=== PATIENT | female | born 1955 | race African-American/Black ===

== ENCOUNTER 2016-05-14 09:41 | Outpatient (CLI) | payer OTHER ==
--- NOTE | 2016-05-15 12:52 | Mammography Report ---
BILATERAL DIGITAL SCREENING MAMMOGRAM with CAD: 05/14/16 09:41:00 CLINICAL: Routine screening. COMPARISON: None available. FINDINGS: There are bilateral scattered areas of fibroglandular density.No mass, architectural distortion or suspicious calcifications. IMPRESSION: No mammographic evidence of malignancy. BI-RADS CATEGORY: 1 -- Negative RECOMMENDATION: Routine mammographic screening in one year. COMMENT: Patient follow-up letters are generated by our [employer] application.
== END 2016-05-14 09:42 | disposition home or self-care (01) ==
LOC: SPVWC 09:41
PROVIDERS: ATTEND General Practice
DX: Z12.31 Encounter for screening mammogram for malignant neoplasm of breast (principal)
CPT/HCPCS: 77067; G0202

== ENCOUNTER 2021-07-04 10:39 | Outpatient (CLI) | payer MEDICARE ==
--- NOTE | 2021-07-04 14:03 | Cat Scan Report ---
CT CHEST, ABDOMEN, AND PELVIS WITH CONTRAST INDICATION / CLINICAL INFORMATION: Malignant neoplasm of endometrium 100 ml omni 300. TECHNIQUE: Axial CT images were obtained through the chest, abdomen, and pelvis after 100 cc of Omnip aque [address] scans at this location are performed using CT dose reduction for ALARA b y means of automated exposure control. COMPARISON: None available. FINDINGS: HEART: No significant abnormality. CORONARY ARTERY CALCIFICATION: None. THORACIC AORTA: No significant abnormality. MEDIASTINUM / GHADA: No significant abnormality. PLEURA: No pleural effusion. No pneumothorax. LUNGS: No acute air space or interstitial disease. No suspicious pulmonary lesion is detected. ADDITIONAL CHEST FINDINGS: None. LIVER: No significant abnormality. 2 small cysts measuring up to 1 cm in the left hepatic lobe are no deanne. GALLBLADDER: Surgically absent. BILE DUCTS: No significant abnormality. PANCREAS: No significant abnormality. SPLEEN: No significant abnormality. ADRENALS: No significant abnormality. RIGHT KIDNEY / URETER: No significant abnormality. LEFT KIDNEY / URETER: No significant abnormality. STOMACH and SMALL BOWEL: No significant abnormality. COLON: No significant abnormality. APPENDIX: No significant abnormality. PERITONEUM: No free fluid. No free air. No fluid collection. LYMPH NODES: No pathologic adenopathy is detected. 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 There is occ lusion of the left common iliac artery. Distal flow is reconstituted by collateral vessels. There are moderate to severe atherosclerotic plaques throughout the abdominal aorta. IVC / VEINS: No significant abnormality. URINARY BLADDER: No significant abnormality. REPRODUCTIVE ORGANS: Hysterectomy changes are evident. The vaginal cuff is unremarkable. Adnexal alec ons are unremarkable. ADDITIONAL FINDINGS: None. SKELETAL SYSTEM: No suspicious bony lesion. Moderate degenerative changes are noted in the lumbar spi ne. Grade 1 anterolisthesis of L4 with respect L5. IMPRESSION: Hysterectomy. No evidence for recurrent or metastatic disease in the chest, abdomen or pelvis. 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 The left common iliac artery is occluded. Cholecystectomy. Small liver cysts. Degenerative findings in the lumbar spine. Signer Name: Rachid Yadav Jr, MD Signed: 07/04/2021 1:59 PM Workstation Name: [id number]
== END 2021-07-04 10:40 | disposition home or self-care (01) ==
LOC: CT 10:39
PROVIDERS: ATTEND Obstetrics & Gynecology Gynecologic Oncology
DX: C54.1 Malignant neoplasm of endometrium (principal); I74.5 Embolism and thrombosis of iliac artery; M47.816 Spondylosis without myelopathy or radiculopathy, lumbar region; K76.89 Other specified diseases of liver; Z90.49 Acquired absence of other specified parts of digestive tract; Z90.710 Acquired absence of both cervix and uterus
CPT/HCPCS: 71260; 74177; Q9967